=== PATIENT | male | born 1950 | race African-American/Black ===

== ENCOUNTER 2016-04-24 13:35 | Inpatient (IN) | payer MEDICARE, BC ==
[~2016-04-24] VITALS: Ht 182.9 cm; Wt 95.3 kg
--- NOTE | 2016-04-24 14:13 | PHYS DOC ---
Past Medical History Past Medical History: High Cholesterol, Hypertension Past Surgical History: Other Additional Past Surgical Histo: right rotator cuff, prostate Alcohol Use: Occasionally Additional Information: reports occasional beer Drug Use: None Adult General Chief Complaint Chief Complaint: COUGH HPI HPI Patient is a 66 year old male complaining of a cough getting worse for a few days, shortness of air especially with exertion getting worse. He has had some chills and maybe a low-grade fever. He has no chronic lung disease. He used to smoke a long time ago. No COPD or asthma. He does not use medications for lungs at home. He's never been admitted to the hospital for any kind of lung problem. He has no heart problems. He did have a flu shot last fall. PCP in [place] Review of Systems Review of Systems Constitutional: Positive for low-grade fever and chills. Eyes: Denies change in visual acuity, redness, or eye pain [] HENT: Denies nasal congestion or sore throat [] Respiratory: As in history of present illness Cardiovascular: Denies chest pain GI: Denies abdominal pain, nausea, vomiting, bloody stools or diarrhea [] : Denies dysuria or hematuria [] Musculoskeletal: Denies back pain or joint pain [] Integument: Denies rash or skin lesions [] Neurologic: Denies headache, focal weakness or sensory changes [] Current Medications Current Medications Current Medications Medications (Trade) Dose Ordered Sig/Yves Start Time Stop Time Status Last Admin Dose Admin Albuterol/ Ipratropium (Duoneb) 3 ml 1X ONCE 04/24/16 14:15 04/24/16 14:16 DC 04/24/16 14:13 3 ML Levofloxacin/ Dextrose (LEVAQUIN 750mg PREMIX) 150 ml @ 100 mls/hr 1X ONCE 04/24/16 15:00 04/24/16 16:29 Oseltamivir Phosphate 75 mg 75 mg BID 04/24/16 15:00 04/29/16 14:59 Allergies Allergies Allergies Coded Allergies Type Severity Reaction Last Updated Verified lisinopril Allergy Severe angioedema 04/24/16 Yes Physical Exam Physical Exam Constitutional: Well developed, well nourished, alert, mentating normally, tachycardic in the 120s, pulse ox on room air 92-95%, coughing frequently HENT: Normocephalic, atraumatic, bilateral external ears normal, nose normal. [] Eyes: conjunctiva normal, no discharge. [] Neck: Normal range of motion, no stridor. [] Cardiovascular:Heart rate regular tachycardia, no murmur [] Lungs & Thorax: Breath sounds mildly diminished throughout, some expiratory wheezing scattered, not significantly prolonged expiratory phase Abdomen: Bowel sounds normal, soft, no tenderness, no masses, no pulsatile masses. [] Skin: Warm, dry, no erythema, no rash. [] Extremities: No tenderness, no cyanosis, no clubbing, ROM intact, no edema. [] Neurologic: Alert and oriented X 3, normal motor function, normal sensory function, no focal deficits noted. [] Current Patient Data Vital Signs Vital Signs Date Time Temp Pulse Resp B/P Pulse Ox O2 Delivery O2 Flow Rate FiO2 04/24/16 14:15 100 Room Air 04/24/16 13:45 99.4 118 28 155/102 99.4 Lab Values Laboratory Tests Test 04/24/16 14:02 04/24/16 14:05 White Blood Count 7.4x10^3/uL (4.0-11.0) Red Blood Count 4.96x10^6/uL (4.30-5.70) Hemoglobin 15.0g/dL (13.0-17.5) Hematocrit 45.5% (39.0-53.0) Mean Corpuscular Volume 92fL (79-100) Mean Corpuscular Hemoglobin 30pg (25-35) Mean Corpuscular Hemoglobin Concent 33g/dL (31-37) Red Cell Distribution Width 13.7% (11.5-14.5) Platelet Count 176x10^3/uL (140-400) Neutrophils (%) (Auto) 80% (31-73) H Lymphocytes (%) (Auto) 5% (24-48) L Monocytes (%) (Auto) 12% (0-9) H Eosinophils (%) (Auto) 3% (0-3) Basophils (%) (Auto) 1% (0-3) Neutrophils # (Auto) 5.9x10^3uL (1.8-7.7) Lymphocytes # (Auto) 0.4x10^3/uL (1.0-4.8) L Monocytes # (Auto) 0.9x10^3/uL (0.0-1.1) Eosinophils # (Auto) 0.2x10^3/uL (0.0-0.7) Basophils # (Auto) 0.0x10^3/uL (0.0-0.2) Segmented Neutrophils % 67% (35-66) H Band Neutrophils % 11% (0-9) H Lymphocytes % 9% (24-48) L Monocytes % 10% (0-10) Eosinophils % 3% (0-5) Toxic Granulation Slight Toxic Vacuolation Slight Platelet Estimate Adequate (ADEQUATE) Sodium Level 140mmol/L (136-145) Potassium Level 4.2mmol/L (3.5-5.1) Chloride Level 103mmol/L (98-107) Carbon Dioxide Level 27mmol/L (21-32) Anion Gap 10 (6-14) Blood Urea Nitrogen 18mg/dL (8-26) Creatinine 1.5mg/dL (0.7-1.3) H Estimated GFR (Cockcroft-Gault) 56.8 BUN/Creatinine Ratio 12 (6-20) Glucose Level 113mg/dL (70-99) H Calcium Level 8.9mg/dL (8.5-10.1) Total Bilirubin Pending Aspartate Amino Transferase (AST) Pending Alanine Aminotransferase (ALT) Pending Alkaline Phosphatase Pending Total Protein Pending Albumin Pending Albumin/Globulin Ratio Pending Influenza Type A Antigen Negative (NEGATIVE) Influenza Type B Antigen Positive (NEGATIVE) Laboratory Tests 04/24/16 14:02 Laboratory Tests 04/24/16 14:02 EKG EKG 12-lead EKG read by me. Sinus tachycardia. Heart rate 117. There are no acute ST or T wave changes indicative of ischemia or infarction. No STEMI. 1353 [] Radiology/Procedures Radiology/Procedures One view portable chest x-ray read by me. No, consolidated infiltrate. Heart size is normal. Streaky areas bilaterally. [] Course & Med Decision Making Course & Med Decision Making Pertinent Labs and Imaging studies reviewed. (See chart for details) 66-year-old male who does not have chronic lung disease or heart disease, comes in with several days of worsening cough, worsening dyspnea. His pulse ox on room air is in the low to mid 90s but he is tachycardic with a temp of only 99.4 , which I believe is indicative of some underlying hypoxemia. No clear-cut pneumonia on the chest x-ray although there are some streaky areas. We will give him a breathing treatment. With no history of COPD, I suspect this must be infectious in etiology. Influenza swab and blood cultures were sent. Influenza positive. With patient's tachycardia and dyspnea, we will admit him to the hospital for breathing treatments, IV antibiotics, and I started Tamiflu in the emergency department. I spoke with Dr. Cespedes who will admit the patient. I wrote bridge orders. [] Dragon Disclaimer Dragon Disclaimer This electronic medical record was generated, in whole or in part, using a voice recognition dictation system. Departure Departure Impression: Primary Impression: Influenza B Additional Impression: Pneumonia Disposition: ADMITTED INPATIENT Admitting Physician: Soraya Cespedes Condition: STABLE Referrals: TANO WEBER (PCP) Problem Qualifiers GRETEL STEEL MD Apr 24, 2016 14:13
[2016-04-24] MEDS ORDERED: IPRATRPIUM/ALBUTEROL 0.5/2.5MG 3 ML NEBU. NEB ONE (14:15)
[2016-04-24 14:16] LABS: BASO % 1 % (0-3); EOS % 3 % (0-3); HEMATOCRIT 45.5 % (39.0-53.0); LYMPH # 0.4 x10^3/uL (1.0-4.8); LYMPH % 5 % (24-48); MEAN CORPUSCULAR HEMOGLOBIN 30 pg (25-35); MEAN CORPUSCULAR HGB CONC 33 g/dL (31-37); MEAN CORPUSCULAR VOLUME 92 fL (79-100); MONO % 12 % (0-9); NEUT % 80 % (31-73); PLATELET COUNT 176 x10^3/uL (140-400); RED BLOOD COUNT 4.96 x10^6/uL (4.30-5.70); RED CELL DISTRIBUTION WIDTH 13.7 % (11.5-14.5); WHITE BLOOD COUNT 7.4 x10^3/uL (4.0-11.0)
--- NOTE | 2016-04-24 14:31 | RAD ---
INDICATION: cough COMPARISON: 03/28/2009 FINDINGS: Single view of chest obtained. Mild elevation right hemidiaphragm with linear opacity right lung base. Cardiac silhouette unremarkable. No grossly displaced acute appearing fracture IMPRESSION: Mild elevation right hemidiaphragm with linear opacity right lung base. Most likely cause is atelectasis given the morphology and location.
[2016-04-24 14:37] LABS: OBC FLU VALID
[2016-04-24 14:39] LABS: % EOS 3 % (0-5); CALCIUM 8.9 mg/dL (8.5-10.1); CREATININE 1.5 mg/dL (0.7-1.3); GFR 56.8; POTASSIUM 4.2 mmol/L (3.5-5.1)
[2016-04-24 14:41] LABS: PLT ESTIMATE ADEQUATE (ADEQUATE); TOXIC GRANULATION SLIGHT; TOXIC VACUOLATION SLIGHT
[2016-04-24 14:45] LABS: ALBUMIN 3.6 g/dL (3.4-5.0); ALBUMIN/GLOBULIN RATIO 0.8 (1.0-1.7); TOTAL BILIRUBIN 0.5 mg/dL (0.2-1.0); TOTAL PROTEIN 7.9 g/dL (6.4-8.2)
[2016-04-24 14:53] LABS: CKMB MASS 1.9 ng/mL (0.0-3.6)
[2016-04-24 14:54] LABS: CKMB INDEX 0.1 % (0-4)
[2016-04-24] MEDS ORDERED: OSELTAMIVIR 75 MG CAPSULE PO SCH (15:00)
[2016-04-24] MEDS ORDERED: MORPHINE SULFATE 4 MG/ML DISP.SYRIN. IV ONE (15:00)
[2016-04-24] MEDS: IV NORMAL SALINE 1000ML BAG 1,000 ML IV SCH ×3 (15:10→17:02)
--- NOTE | 2016-04-24 15:20 | EKG ---
[facility] [address] [place] [address] Test Date: 2016-04-24 Test Time: 13:53:57 Pat Name: SUSANA ELI Department: Room: Gender: M Shear Tender: : 1950 Requested By: GRETEL STEEL Order Number: [id number] Reading MD: Measurements Intervals [place] Rate: 117 P: 31 MI: 160 QRS: -28 QRSD: 82 T: 28 QT: 306 QTc: 431 Interpretive Statements SINUS TACHYCARDIA LEFT ATRIAL ABNORMALITY QRS(T) CONTOUR ABNORMALITY CONSIDER ANTEROSEPTAL INFARCT CONSIDER INFERIOR INFARCT ABNORMAL ECG RI6.01 No previous ECG available for comparison
[2016-04-24] MEDS ORDERED: IPRATRPIUM/ALBUTEROL 0.5/2.5MG 3 ML NEBU. NEB SCH (16:00)
--- NOTE | 2016-04-24 16:10 | ACF ---
Admission Forms Criteria PNEUMONIA, COMMUNITY ACQUIRED Clinical Indications for Admission to Inpatient Care ( Place 'X' for any and all applicable criteria): Admission is indicated for ANY ONE of the following (1)(2)(3): [ ]I. Hypoxemia indicated by ANY ONE of the following: [ ]a) Oxygen saturation less than 90% while breathing room air [ ]b) PO2 less than 60 mm Hg (8.0 kPa) while breathing room air [ ]c) Chronic lung disease with significant deterioration from baseline oxygenation [X]II. Appropriate diagnostic testing and treatment unavailable in outpatient or recovery facility (eg,testing or infection control measures unavailable(10) [ ]III. Moderate-risk or high-risk category patients (Pneumonia Severity Index (PSI) class IV or V, or CURB-65 score of 3 or greater). [ ]IV. Outpatient treatment failure as indicated by ANY ONE of the following(9) : [ ]a) Failure to respond to antibiotic (eg, resistant organism) [ ]b) Clinically significant adverse effects from medication (eg, vomiting) [ ]c) Complications of pneumonia (eg, empyema, bacteremia) [ ]d) Significant worsening of comorbid cond necessitating inpatient care (eg, chronic heart failure) [ ]V. Intermediate-risk category patients (eg, PSI class III or CURB-65 score 2) who do not improve with initial therapy and observation. [ ]. Immunocompromised patients (eg, AIDS, chronic steroid use) at moderate or high risk based on clinical evaluation. [ ]VII. Complicated pleural effusions (eg, exudative, loculated) [ ]VIII.Hemodynamic instability [ ] IX. Altered mental status that is severe or persistent. [ ]X. Dehydration that is severe or persistent. [ ]XI. Bacteremia [ ]XII. Respiratory finding (eg. tachypnea) that do not respond to outpatient or observation care treatment Extended stay beyond goal length of stay may be needed for (20) [ ]a) Unclear diagnosis [ ]b) Pleural disease [ ]c) Severe pneumonia or treatment failure (25 [ ]d) Respiratory failure (anticipate invasive or noninvasive ventilatory support) [ ]e) Abnormal serum electrolytes (serum Na concentration less than 135 mEq/L (mmol/L) (32)(33) [ ]f) Clinically significant comorbid illness (eg, heart failure, atrial fibrillation with rapid heart rate, alcohol withdrawal, renal insufficiency)(34)(35) [ ]g) Comorbid acute exacerbation of COPD(36) [ ]h) Concomitant diagnosis of malignancy that may be associated with malnutrition, immunologic impairment, or bronchial obstruction. [ ]i) Concomitant altered mental status [ ]j) Culture-identified Gram-negative or antibiotic-resistant organism (eg, Pseudomonas, methicillin-resistant Staphylococcus aureus)(30) [ ]k) Healthcare-associated pneumonia The original [employer] content created by [employer] has been revised. The portions of the content which have been revised are identified through the use of italic text or in bold, and [facility] has neither reviewed nor approved the modified material. All other unmodified content is copyright [employer] [facility]. Please see references footnoted in the original [facility] edition 2016 Admission Criteria Met?: Yes ALFREDO ALEXANDRA. Apr 24, 2016 16:10
[2016-04-24] MEDS ORDERED: ALBUTEROL SULFATE 2.5 MG/3 ML NEBU. NEB PRN (16:30)
[2016-04-24] MEDS ORDERED: ONDANSETRON PF 4 MG/2 ML VIAL. IV PRN (16:30)
--- NOTE | 2016-04-24 16:35 | PDOC1 ---
History and Physical Date of Admission Date of Admission 04/24/16 Identification/Chief Complaint Chief Complaint SOB Problems: Source Source: Chart review, Patient History of Present Illness History of Present Illness HPI Patient is a 66 year old male complaining of a cough FOR A few days. He quit smoking for a long time. has sob, mild sputum. fever 102 at home. + flu in ER He did have a flu shot last fall. PCP in [place] Past Medical History Cardiovascular: HTN Past Surgical History Past Surgical History ght rotator cuff, prostate Family History Family History: No Significant Social History Smoke: No ALCOHOL: social Drugs: None Current Problem List Problem List Problems Medical Problems: (1) Influenza B Status: Acute (2) Pneumonia Status: Acute Current Medications Current Medications Current Medications Medications (Trade) Dose Ordered Sig/Yves Start Time Stop Time Status Last Admin Dose Admin Albuterol/ Ipratropium (Duoneb) 3 ml RTQID 04/24/16 16:00 04/25/16 15:59 Levofloxacin/ Dextrose (LEVAQUIN 750mg PREMIX) 150 ml @ 100 mls/hr 1X ONCE 04/24/16 15:00 04/24/16 16:29 04/24/16 15:12 100 MLS/HR Morphine Sulfate 2 mg 2 mg PRN Q2HR PRN 04/24/16 15:00 04/25/16 14:59 Oseltamivir Phosphate 75 mg 75 mg BID 04/24/16 15:00 04/29/16 14:59 04/24/16 15:15 75 MG Sodium Chloride (Iv Sodium Chloride 0.9% 1000ml Bag) 1,000 ml @ 100 mls/hr Q10H 04/24/16 15:00 04/25/16 14:59 04/24/16 15:10 100 MLS/HR Allergies Allergies Allergies Coded Allergies Type Severity Reaction Last Updated Verified lisinopril Allergy Severe angioedema 04/24/16 Yes ROS Review of System CONSTITUTIONAL: No fever or chills EYES: No recent changes SKIN: No rash or itching CARDIOVASCULAR: No chest pain, syncope, palpitations, or edema RESPIRATORY: No SOB or cough GASTROINTESTINAL: No nausea, vomiting or abdominal pain NEUROLOGICAL: No headaches or weakness ENDOCRINE: No cold or heat intolerance GENITOURINARY: No urgency or frequency of urination MUSCULOSKELETAL: No back pain or joint pain LYMPHATICS: No enlarged lymph nodes PSYCHIATRIC: No anxiety or depression Physical Exam Physical Exam GEN.: No apparent distress. Alert and oriented. HEENT: Head is normocephalic, atraumatic NECK: Supple. LUNGS: bl coarse bs HEART: RRR, S1, S2 present. Peripheral pulses intact ABDOMEN: Soft, nontender. Positive bowel sounds. EXTREMITIES: Without any cyanosis. NEUROLOGIC: Normal speech, normal tone PSYCHIATRIC: Normal affect, normal mood. SKIN: No ulcerations Vitals Vitals Vital Signs Date Time Temp Pulse Resp B/P Pulse Ox O2 Delivery O2 Flow Rate FiO2 04/24/16 15:46 122 24 122/81 96 Nasal Cannula 2 04/24/16 13:45 99.4 99.4 Labs Labs Laboratory Tests Test 04/24/16 14:02 04/24/16 14:05 White Blood Count 7.4x10^3/uL (4.0-11.0) Red Blood Count 4.96x10^6/uL (4.30-5.70) Hemoglobin 15.0g/dL (13.0-17.5) Hematocrit 45.5% (39.0-53.0) Mean Corpuscular Volume 92fL (79-100) Mean Corpuscular Hemoglobin 30pg (25-35) Mean Corpuscular Hemoglobin Concent 33g/dL (31-37) Red Cell Distribution Width 13.7% (11.5-14.5) Platelet Count 176x10^3/uL (140-400) Neutrophils (%) (Auto) 80% (31-73) Lymphocytes (%) (Auto) 5% (24-48) Monocytes (%) (Auto) 12% (0-9) Eosinophils (%) (Auto) 3% (0-3) Basophils (%) (Auto) 1% (0-3) Neutrophils # (Auto) 5.9x10^3uL (1.8-7.7) Lymphocytes # (Auto) 0.4x10^3/uL (1.0-4.8) Monocytes # (Auto) 0.9x10^3/uL (0.0-1.1) Eosinophils # (Auto) 0.2x10^3/uL (0.0-0.7) Basophils # (Auto) 0.0x10^3/uL (0.0-0.2) Segmented Neutrophils % 67% (35-66) Band Neutrophils % 11% (0-9) Lymphocytes % 9% (24-48) Monocytes % 10% (0-10) Eosinophils % 3% (0-5) Toxic Granulation Slight Toxic Vacuolation Slight Platelet Estimate Adequate (ADEQUATE) Sodium Level 140mmol/L (136-145) Potassium Level 4.2mmol/L (3.5-5.1) Chloride Level 103mmol/L (98-107) Carbon Dioxide Level 27mmol/L (21-32) Anion Gap 10 (6-14) Blood Urea Nitrogen 18mg/dL (8-26) Creatinine 1.5mg/dL (0.7-1.3) Estimated GFR (Cockcroft-Gault) 56.8 BUN/Creatinine Ratio 12 (6-20) Glucose Level 113mg/dL (70-99) Lactic Acid Level 1.1mmol/L (0.4-2.0) Calcium Level 8.9mg/dL (8.5-10.1) Total Bilirubin 0.5mg/dL (0.2-1.0) Aspartate Amino Transf (AST/SGOT) 75U/L (15-37) Alanine Aminotransferase (ALT/SGPT) 37U/L (16-63) Alkaline Phosphatase 29U/L (46-116) Creatine Kinase 3108U/L (39-308) Creatine Kinase MB (Mass) 1.9ng/mL (0.0-3.6) Creatine Kinase MB Relative Index 0.1% (0-4) Troponin I Quantitative < 0.017ng/mL (0.000-0.055) IL-Omo-S-Type Natriuretic Peptide 78pg/mL (0-124) Total Protein 7.9g/dL (6.4-8.2) Albumin 3.6g/dL (3.4-5.0) Albumin/Globulin Ratio 0.8 (1.0-1.7) Influenza Type A Antigen Negative (NEGATIVE) Influenza Type B Antigen Positive (NEGATIVE) Laboratory Tests Test 04/24/16 14:02 04/24/16 14:05 White Blood Count 7.4x10^3/uL (4.0-11.0) Red Blood Count 4.96x10^6/uL (4.30-5.70) Hemoglobin 15.0g/dL (13.0-17.5) Hematocrit 45.5% (39.0-53.0) Mean Corpuscular Volume 92fL (79-100) Mean Corpuscular Hemoglobin 30pg (25-35) Mean Corpuscular Hemoglobin Concent 33g/dL (31-37) Red Cell Distribution Width 13.7% (11.5-14.5) Platelet Count 176x10^3/uL (140-400) Neutrophils (%) (Auto) 80% (31-73) Lymphocytes (%) (Auto) 5% (24-48) Monocytes (%) (Auto) 12% (0-9) Eosinophils (%) (Auto) 3% (0-3) Basophils (%) (Auto) 1% (0-3) Neutrophils # (Auto) 5.9x10^3uL (1.8-7.7) Lymphocytes # (Auto) 0.4x10^3/uL (1.0-4.8) Monocytes # (Auto) 0.9x10^3/uL (0.0-1.1) Eosinophils # (Auto) 0.2x10^3/uL (0.0-0.7) Basophils # (Auto) 0.0x10^3/uL (0.0-0.2) Segmented Neutrophils % 67% (35-66) Band Neutrophils % 11% (0-9) Lymphocytes % 9% (24-48) Monocytes % 10% (0-10) Eosinophils % 3% (0-5) Toxic Granulation Slight Toxic Vacuolation Slight Platelet Estimate Adequate (ADEQUATE) Sodium Level 140mmol/L (136-145) Potassium Level 4.2mmol/L (3.5-5.1) Chloride Level 103mmol/L (98-107) Carbon Dioxide Level 27mmol/L (21-32) Anion Gap 10 (6-14) Blood Urea Nitrogen 18mg/dL (8-26) Creatinine 1.5mg/dL (0.7-1.3) Estimated GFR (Cockcroft-Gault) 56.8 BUN/Creatinine Ratio 12 (6-20) Glucose Level 113mg/dL (70-99) Lactic Acid Level 1.1mmol/L (0.4-2.0) Calcium Level 8.9mg/dL (8.5-10.1) Total Bilirubin 0.5mg/dL (0.2-1.0) Aspartate Amino Transf (AST/SGOT) 75U/L (15-37) Alanine Aminotransferase (ALT/SGPT) 37U/L (16-63) Alkaline Phosphatase 29U/L (46-116) Creatine Kinase 3108U/L (39-308) Creatine Kinase MB (Mass) 1.9ng/mL (0.0-3.6) Creatine Kinase MB Relative Index 0.1% (0-4) Troponin I Quantitative < 0.017ng/mL (0.000-0.055) CO-Fxc-K-Type Natriuretic Peptide 78pg/mL (0-124) Total Protein 7.9g/dL (6.4-8.2) Albumin 3.6g/dL (3.4-5.0) Albumin/Globulin Ratio 0.8 (1.0-1.7) Influenza Type A Antigen Negative (NEGATIVE) Influenza Type B Antigen Positive (NEGATIVE) VTE Prophylaxis Ordered VTE Prophylaxis Devices: Yes VTE Pharmacological Prophylaxi: Yes Assessment/Plan Assessment/Plan 1. dyspea with flu B 2. htn 3. hld 4. ckd4 5. acute resp failure 6. SIRS with flu plan: 1 tamiflu 2. duoneb 3. need home meds dvt ppx cough meds ivf for 1L MIRANDA MOREJON MD Apr 24, 2016 16:35
[2016-04-24 16:44] VITALS: BP 152/94
[2016-04-24] MEDS ORDERED: hydrALAZINE 20 MG/ML VIAL. IVP PRN (16:45)
[2016-04-24] MEDS: MORPHINE SULFATE 2 MG/ML DISP.SYRIN. IV PRN ×2 (17:03→23:59)
[2016-04-24] MEDS ORDERED: ATOR20TA58 PO (17:25)
[2016-04-24] MEDS ORDERED: MELO-156 PO (17:25)
[2016-04-24] MEDS ORDERED: FENO145T2 PO (17:25)
[2016-04-24] MEDS ORDERED: AMLO5TAB2 PO (17:25)
[2016-04-24 17:55] VITALS: BP 152/94
[2016-04-24] MEDS: ACETAMINOPHEN 325 MG TABLET. PO PRN (19:48)
[2016-04-24] MEDS: GUAIFENESIN 200 MG/10 ML LIQUID. PO PRN ×2 (19:48→23:59)
[2016-04-24 19:49] VITALS: BP 137/88
[2016-04-24] MEDS: IPRATRPIUM/ALBUTEROL 0.5/2.5MG 3 ML NEBU. NEB SCH (19:54)
[2016-04-24] MEDS: ATORVASTATIN CALCIUM 20 MG TABLET PO SCH (20:45)
[2016-04-24] MEDS: OSELTAMIVIR 30 MG CAPSULE PO SCH (20:46)
[2016-04-24] MEDS: HEPARIN PF for SUB-Q USE 5,000 UNIT/0.5 ML VIAL. SQ SCH (22:44)
[2016-04-24 23:06] VITALS: BP 128/68
[2016-04-25] MEDS: IV NORMAL SALINE 1000ML BAG 1,000 ML IV SCH (00:01)
[2016-04-25 06:05] LABS: BASO % 1 % (0-3); EOS % 2 % (0-3); HEMATOCRIT 42.1 % (39.0-53.0); HEMOGLOBIN 13.9 g/dL (13.0-17.5); LYMPH # 0.6 x10^3/uL (1.0-4.8); LYMPH % 12 % (24-48); MEAN CORPUSCULAR HEMOGLOBIN 30 pg (25-35); MEAN CORPUSCULAR HGB CONC 33 g/dL (31-37); MEAN CORPUSCULAR VOLUME 92 fL (79-100); MONO % 11 % (0-9); NEUT % 75 % (31-73); PLATELET COUNT 151 x10^3/uL (140-400); RED BLOOD COUNT 4.58 x10^6/uL (4.30-5.70); RED CELL DISTRIBUTION WIDTH 13.7 % (11.5-14.5); WHITE BLOOD COUNT 4.8 x10^3/uL (4.0-11.0)
[2016-04-25 06:26] LABS: CREATININE 1.2 mg/dL (0.7-1.3); GFR 73.5; POTASSIUM 3.7 mmol/L (3.5-5.1)
[2016-04-25] MEDS: ACETAMINOPHEN 325 MG TABLET. PO PRN ×3 (06:30→20:34)
[2016-04-25] MEDS: GUAIFENESIN 200 MG/10 ML LIQUID. PO PRN ×3 (06:30→20:34)
[2016-04-25] MEDS: HEPARIN PF for SUB-Q USE 5,000 UNIT/0.5 ML VIAL. SQ SCH ×3 (06:38→20:43)
[2016-04-25 07:00] VITALS: BP 130/88
[2016-04-25] MEDS: IPRATRPIUM/ALBUTEROL 0.5/2.5MG 3 ML NEBU. NEB SCH ×4 (07:55→19:48)
[2016-04-25] MEDS: AMLODIPINE BESYLATE 5 MG TABLET PO SCH (08:59)
[2016-04-25] MEDS: FENOFIBRATE,MICRONIZED 134 MG CAPSULE PO SCH (08:59)
[2016-04-25] MEDS: OSELTAMIVIR 30 MG CAPSULE PO SCH (09:00)
[2016-04-25] MEDS: MORPHINE SULFATE 2 MG/ML DISP.SYRIN. IV PRN (09:01)
[2016-04-25 11:00] VITALS: BP 120/84
[2016-04-25] MEDS ORDERED: MORPHINE SULFATE 2 MG/ML DISP.SYRIN. IV PRN (15:15)
--- NOTE | 2016-04-25 16:05 | PDOC ---
PROGRESS NOTES Chief Complaint Chief Complaint Dyspnea Influenza B ASSESSMENT AND PLAN: 1. Influenza B: on tamiflu since 04/24 2. Acute respir failure: bronchitis. improving. nebs, suppl O2, expectorants. codeine for cough suppression PRN 3. SIRS: improving 4. HTN: well controlled on Norvasc 5. HLD: on statin, fenofibrate 6. 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 monitor 7. Prophylaxis: heparin 8. Dispo: prob home in AM Vitals Vitals Vital Signs Date Time Temp Pulse Resp B/P Pulse Ox O2 Delivery O2 Flow Rate FiO2 04/25/16 15:16 Nasal Cannula 2.0 04/25/16 11:00 98.7 89 20 120/84 97 98.7 Physical Exam General: Alert, Oriented X3, Cooperative, No acute distress Heart: Regular rate Lungs: Clear Abdomen: Normal bowel sounds, Soft, No tenderness Extremities: No clubbing, No edema Skin: No rashes Labs LABS Laboratory Tests Test 04/25/16 05:14 White Blood Count 4.8x10^3/uL (4.0-11.0) Red Blood Count 4.58x10^6/uL (4.30-5.70) Hemoglobin 13.9g/dL (13.0-17.5) Hematocrit 42.1% (39.0-53.0) Mean Corpuscular Volume 92fL (79-100) Mean Corpuscular Hemoglobin 30pg (25-35) Mean Corpuscular Hemoglobin Concent 33g/dL (31-37) Red Cell Distribution Width 13.7% (11.5-14.5) Platelet Count 151x10^3/uL (140-400) Neutrophils (%) (Auto) 75% (31-73) Lymphocytes (%) (Auto) 12% (24-48) Monocytes (%) (Auto) 11% (0-9) Eosinophils (%) (Auto) 2% (0-3) Basophils (%) (Auto) 1% (0-3) Neutrophils # (Auto) 3.6x10^3uL (1.8-7.7) Lymphocytes # (Auto) 0.6x10^3/uL (1.0-4.8) Monocytes # (Auto) 0.5x10^3/uL (0.0-1.1) Eosinophils # (Auto) 0.1x10^3/uL (0.0-0.7) Basophils # (Auto) 0.0x10^3/uL (0.0-0.2) Sodium Level 140mmol/L (136-145) Potassium Level 3.7mmol/L (3.5-5.1) Chloride Level 103mmol/L (98-107) Carbon Dioxide Level 28mmol/L (21-32) Anion Gap 9 (6-14) Blood Urea Nitrogen 17mg/dL (8-26) Creatinine 1.2mg/dL (0.7-1.3) Estimated GFR (Cockcroft-Gault) 73.5 Glucose Level 110mg/dL (70-99) Calcium Level 8.0mg/dL (8.5-10.1) Review of Systems Review of Systems still coughing, typically with min expectoration. no CP. Comment Labs Laboratory Tests Test 04/24/16 14:02 04/24/16 14:05 04/25/16 05:14 White Blood Count 7.4x10^3/uL (4.0-11.0) 4.8x10^3/uL (4.0-11.0) Red Blood Count 4.96x10^6/uL (4.30-5.70) 4.58x10^6/uL (4.30-5.70) Hemoglobin 15.0g/dL (13.0-17.5) 13.9g/dL (13.0-17.5) Hematocrit 45.5% (39.0-53.0) 42.1% (39.0-53.0) Mean Corpuscular Volume 92fL (79-100) 92fL (79-100) Mean Corpuscular Hemoglobin 30pg (25-35) 30pg (25-35) Mean Corpuscular Hemoglobin Concent 33g/dL (31-37) 33g/dL (31-37) Red Cell Distribution Width 13.7% (11.5-14.5) 13.7% (11.5-14.5) Platelet Count 176x10^3/uL (140-400) 151x10^3/uL (140-400) Neutrophils (%) (Auto) 80% (31-73) 75% (31-73) Lymphocytes (%) (Auto) 5% (24-48) 12% (24-48) Monocytes (%) (Auto) 12% (0-9) 11% (0-9) Eosinophils (%) (Auto) 3% (0-3) 2% (0-3) Basophils (%) (Auto) 1% (0-3) 1% (0-3) Neutrophils # (Auto) 5.9x10^3uL (1.8-7.7) 3.6x10^3uL (1.8-7.7) Lymphocytes # (Auto) 0.4x10^3/uL (1.0-4.8) 0.6x10^3/uL (1.0-4.8) Monocytes # (Auto) 0.9x10^3/uL (0.0-1.1) 0.5x10^3/uL (0.0-1.1) Eosinophils # (Auto) 0.2x10^3/uL (0.0-0.7) 0.1x10^3/uL (0.0-0.7) Basophils # (Auto) 0.0x10^3/uL (0.0-0.2) 0.0x10^3/uL (0.0-0.2) Segmented Neutrophils % 67% (35-66) Band Neutrophils % 11% (0-9) Lymphocytes % 9% (24-48) Monocytes % 10% (0-10) Eosinophils % 3% (0-5) Toxic Granulation Slight Toxic Vacuolation Slight Platelet Estimate Adequate (ADEQUATE) Sodium Level 140mmol/L (136-145) 140mmol/L (136-145) Potassium Level 4.2mmol/L (3.5-5.1) 3.7mmol/L (3.5-5.1) Chloride Level 103mmol/L (98-107) 103mmol/L (98-107) Carbon Dioxide Level 27mmol/L (21-32) 28mmol/L (21-32) Anion Gap 10 (6-14) 9 (6-14) Blood Urea Nitrogen 18mg/dL (8-26) 17mg/dL (8-26) Creatinine 1.5mg/dL (0.7-1.3) 1.2mg/dL (0.7-1.3) Estimated GFR (Cockcroft-Gault) 56.8 73.5 BUN/Creatinine Ratio 12 (6-20) Glucose Level 113mg/dL (70-99) 110mg/dL (70-99) Lactic Acid Level 1.1mmol/L (0.4-2.0) Calcium Level 8.9mg/dL (8.5-10.1) 8.0mg/dL (8.5-10.1) Total Bilirubin 0.5mg/dL (0.2-1.0) Aspartate Amino Transf (AST/SGOT) 75U/L (15-37) Alanine Aminotransferase (ALT/SGPT) 37U/L (16-63) Alkaline Phosphatase 29U/L (46-116) Creatine Kinase 3108U/L (39-308) Creatine Kinase MB (Mass) 1.9ng/mL (0.0-3.6) Creatine Kinase MB Relative Index 0.1% (0-4) Troponin I Quantitative < 0.017ng/mL (0.000-0.055) [id number]-[id number]-Type Natriuretic Peptide 78pg/mL (0-124) Total Protein 7.9g/dL (6.4-8.2) Albumin 3.6g/dL (3.4-5.0) Albumin/Globulin Ratio 0.8 (1.0-1.7) Influenza Type A Antigen Negative (NEGATIVE) Influenza Type B Antigen Positive (NEGATIVE) Laboratory Tests Test 04/25/16 05:14 White Blood Count 4.8x10^3/uL (4.0-11.0) Red Blood Count 4.58x10^6/uL (4.30-5.70) Hemoglobin 13.9g/dL (13.0-17.5) Hematocrit 42.1% (39.0-53.0) Mean Corpuscular Volume 92fL (79-100) Mean Corpuscular Hemoglobin 30pg (25-35) Mean Corpuscular Hemoglobin Concent 33g/dL (31-37) Red Cell Distribution Width 13.7% (11.5-14.5) Platelet Count 151x10^3/uL (140-400) Neutrophils (%) (Auto) 75% (31-73) Lymphocytes (%) (Auto) 12% (24-48) Monocytes (%) (Auto) 11% (0-9) Eosinophils (%) (Auto) 2% (0-3) Basophils (%) (Auto) 1% (0-3) Neutrophils # (Auto) 3.6x10^3uL (1.8-7.7) Lymphocytes # (Auto) 0.6x10^3/uL (1.0-4.8) Monocytes # (Auto) 0.5x10^3/uL (0.0-1.1) Eosinophils # (Auto) 0.1x10^3/uL (0.0-0.7) Basophils # (Auto) 0.0x10^3/uL (0.0-0.2) Sodium Level 140mmol/L (136-145) Potassium Level 3.7mmol/L (3.5-5.1) Chloride Level 103mmol/L (98-107) Carbon Dioxide Level 28mmol/L (21-32) Anion Gap 9 (6-14) Blood Urea Nitrogen 17mg/dL (8-26) Creatinine 1.2mg/dL (0.7-1.3) Estimated GFR (Cockcroft-Gault) 73.5 Glucose Level 110mg/dL (70-99) Calcium Level 8.0mg/dL (8.5-10.1) Medications Current Medications Albuterol/ Ipratropium (Duoneb) 3 ml 1X ONCE NEB Last administered on 14:13; Start 04/24/16 at 14:15; Stop 04/24/16 at 14:16; Status DC Oseltamivir Phosphate 75 mg 75 mg BID PO Last administered on 04/24/16 15:15; Start 04/24/16 at 15:00; Stop 04/24/16 at 16:32; Status DC Levofloxacin/ Dextrose (LEVAQUIN 750mg PREMIX) 150 ml @ 100 mls/hr 1X ONCE IV Last administered on 04/24/16 15:12; Start 04/24/16 at 15:00; Stop 04/24/16 at 16:29; Status DC Morphine Sulfate 4 mg 1X ONCE IV Last administered on 04/24/16 15:13; Start 04/24/16 at 15:00; Stop 04/24/16 at 15:01; Status DC Morphine Sulfate 2 mg 2 mg PRN Q2HR PRN IV PAIN Last administered on 04/25/16 09:01; Start 04/24/16 at 15:00; Stop 04/25/16 at 14:59; Status DC Sodium Chloride (Iv Sodium Chloride 0.9% 1000ml Bag) 1,000 ml @ 100 mls/hr Q10H IV Last administered on 04/25/16 00:01; Start 04/24/16 at 15:00; Stop at 14:59; Status DC Albuterol/ Ipratropium (Duoneb) 3 ml RTQID NEB ; Start 04/24/16 at 16:00; Stop 04/24/16 at 16:34; Status DC Oseltamivir Phosphate (Tamiflu) 30 mg BID PO Last administered on 04/25/16 09: 00; Start 04/24/16 at 21:00; Stop 04/25/16 at 15:41; Status DC Albuterol/ Ipratropium (Duoneb) 3 ml RTQID NEB Last administered on 04/25/16 15:16; Start 04/24/16 at 20:00 Albuterol Sulfate (Ventolin Neb Soln) 2.5 mg PRN Q4HRS PRN NEB SHORTNESS OF BREATH Last administered on 04/24/16 17:03; Start 04/24/16 at 16:30 Acetaminophen (Tylenol) 650 mg PRN Q6HRS PRN PO MILD PAIN / TEMP Last administered on 04/25/16 15:04; Start 04/24/16 at 16:30 Ondansetron HCl (Zofran) 4 mg PRN Q6HRS PRN IV NAUSEA/VOMITING; Start 04/24/16 at 16:30 Guaifenesin (Robitussin) 200 mg PRN Q4HRS PRN PO COUGH Last administered on 15:03; Start 04/24/16 at 16:30 Hydralazine HCl (Apresoline) 10 mg PRN Q4HRS PRN IVP ELEVATED BP, SEE COMMENTS ; Start 04/24/16 at 16:45 Heparin Sodium (Porcine) 5,000 unit Q8HRS SQ Last administered on 04/25/16 14: 44; Start 04/24/16 at 22:00 Amlodipine Besylate (Norvasc) 5 mg DAILY PO Last administered on 04/25/16 08: 59; Start 04/25/16 at 09:00 Atorvastatin Calcium (Lipitor) 20 mg HS PO Last administered on 04/24/16 20:45 ; Start 04/24/16 at 21:00 Fenofibrate (Lofibra) 134 mg DAILY PO Last administered on 04/25/16 08:59; Start 04/25/16 at 09:00 Morphine Sulfate 2 mg PRN Q2HR PRN IV PAIN Last administered on 04/25/16 15:14 ; Start 04/25/16 at 15:15 Oseltamivir Phosphate (Tamiflu) 75 mg BID PO ; Start 04/25/16 at 21:00; Stop at 21:01 Active Scripts Active Reported Atorvastatin Calcium 20 Mg Tablet 20 Mg PO HS Amlodipine Besylate 5 Mg Tablet 5 Mg PO DAILY Fenofibrate (Fenofibrate Nanocrystallized) 145 Mg Tablet 1 Tab PO DAILY Meloxicam 7.5 Mg Tablet 1 Tab PO DAILY Vitals/I & O Vital Sign - Last 24 Hours 04/24/16 04/24/16 04/24/16 04/24/16 16:44 17:04 17:55 18:02 Temp 99.1 99.1 99.1 99.1 Pulse 120 120 Resp 32 B/P 152/94 152/94 Pulse Ox 96 100 100 O2 Delivery Nasal Cannula Nasal Cannula Nasal Cannula O2 Flow Rate 2.0 2.0 2.0 2.0 04/24/16 04/24/16 04/24/16 04/24/16 19:49 19:55 20:00 23:06 Temp 100.9 98.0 100.9 98.0 Pulse 118 91 Resp 24 B/P 137/88 128/68 Pulse Ox 93 100 93 O2 Delivery Nasal Cannula Nasal Cannula Nasal Cannula Nasal Cannula O2 Flow Rate 2.0 2.0 2.0 2.0 04/24/16 04/25/16 04/25/16 04/25/16 23:59 03:55 07:00 07:47 Temp 98.0 98.0 Pulse 96 Resp 24 22 24 B/P 130/88 Pulse Ox 97 O2 Delivery Nasal Cannula Room Air Nasal Cannula O2 Flow Rate 3.0 2.0 04/25/16 04/25/16 04/25/16 04/25/16 07:56 08:59 11:00 11:34 Temp 98.7 98.7 Pulse 96 89 Resp 20 B/P 130/88 120/84 Pulse Ox 96 97 O2 Delivery Nasal Cannula Room Air Nasal Cannula O2 Flow Rate 2.0 2.0 04/25/16 15:16 O2 Delivery Nasal Cannula O2 Flow Rate 2.0 Intake and Output 04/24/16 04/24/16 04/25/16 14:59 22:59 06:59 Intake Total 0 ml 240 ml Output Total 1700 ml Balance 0 ml -1460 ml EDWIN LOPEZ MD Apr 25, 2016 16:05
[2016-04-25 19:00] VITALS: BP 140/83
[2016-04-25] MEDS: ATORVASTATIN CALCIUM 20 MG TABLET PO SCH (20:34)
[2016-04-25] MEDS: OSELTAMIVIR 75 MG CAPSULE PO SCH (20:34)
[2016-04-25] MEDS ORDERED: ACETAMINOPHEN/CODEINE 300/30MG TABLET PO PRN (21:30)
[2016-04-25 23:24] VITALS: BP 146/87
[2016-04-26 03:21] VITALS: BP 126/81
[2016-04-26] MEDS: HEPARIN PF for SUB-Q USE 5,000 UNIT/0.5 ML VIAL. SQ SCH (06:41)
[2016-04-26 07:00] VITALS: BP 112/86
[2016-04-26] MEDS: IPRATRPIUM/ALBUTEROL 0.5/2.5MG 3 ML NEBU. NEB SCH ×3 (07:50→15:00)
[2016-04-26] MEDS: OSELTAMIVIR 75 MG CAPSULE PO SCH (10:23)
[2016-04-26] MEDS: FENOFIBRATE,MICRONIZED 134 MG CAPSULE PO SCH (10:23)
[2016-04-26] MEDS: AMLODIPINE BESYLATE 5 MG TABLET PO SCH (10:24)
[2016-04-26] MEDS: ACETAMINOPHEN 325 MG TABLET. PO PRN (10:48)
[2016-04-26 11:02] VITALS: BP 119/87
[2016-04-26] MEDS ORDERED: OSEL75CA PO (11:45)
--- NOTE | 2016-04-26 11:48 | PDOC3 ---
Discharge Summary Visit Information Date of Admission: Apr 24, 2016 Date of Discharge: Apr 26, 2016 Admitting Diagnosis Comment: Flu B SIRS HTN Violet,resolved Final Diagnosis Problems Medical Problems: (1) Influenza B Status: Acute (2) Pneumonia Status: Acute Brief Hospital Course Allergies Allergies Coded Allergies Type Severity Reaction Last Updated Verified lisinopril Allergy Severe angioedema 04/24/16 Yes Vital Signs Vital Signs Date Time Temp Pulse Resp B/P Pulse Ox O2 Delivery O2 Flow Rate FiO2 04/26/16 11:24 Room Air 04/26/16 11:02 98.8 111 20 119/87 94 98.8 04/25/16 20:00 2.0 Lab Results Laboratory Tests Test 04/24/16 14:02 04/24/16 14:05 04/25/16 05:14 White Blood Count 7.4x10^3/uL (4.0-11.0) 4.8x10^3/uL (4.0-11.0) Red Blood Count 4.96x10^6/uL (4.30-5.70) 4.58x10^6/uL (4.30-5.70) Hemoglobin 15.0g/dL (13.0-17.5) 13.9g/dL (13.0-17.5) Hematocrit 45.5% (39.0-53.0) 42.1% (39.0-53.0) Mean Corpuscular Volume 92fL (79-100) 92fL (79-100) Mean Corpuscular Hemoglobin 30pg (25-35) 30pg (25-35) Mean Corpuscular Hemoglobin Concent 33g/dL (31-37) 33g/dL (31-37) Red Cell Distribution Width 13.7% (11.5-14.5) 13.7% (11.5-14.5) Platelet Count 176x10^3/uL (140-400) 151x10^3/uL (140-400) Neutrophils (%) (Auto) 80% (31-73) 75% (31-73) Lymphocytes (%) (Auto) 5% (24-48) 12% (24-48) Monocytes (%) (Auto) 12% (0-9) 11% (0-9) Eosinophils (%) (Auto) 3% (0-3) 2% (0-3) Basophils (%) (Auto) 1% (0-3) 1% (0-3) Neutrophils # (Auto) 5.9x10^3uL (1.8-7.7) 3.6x10^3uL (1.8-7.7) Lymphocytes # (Auto) 0.4x10^3/uL (1.0-4.8) 0.6x10^3/uL (1.0-4.8) Monocytes # (Auto) 0.9x10^3/uL (0.0-1.1) 0.5x10^3/uL (0.0-1.1) Eosinophils # (Auto) 0.2x10^3/uL (0.0-0.7) 0.1x10^3/uL (0.0-0.7) Basophils # (Auto) 0.0x10^3/uL (0.0-0.2) 0.0x10^3/uL (0.0-0.2) Segmented Neutrophils % 67% (35-66) Band Neutrophils % 11% (0-9) Lymphocytes % 9% (24-48) Monocytes % 10% (0-10) Eosinophils % 3% (0-5) Toxic Granulation Slight Toxic Vacuolation Slight Platelet Estimate Adequate (ADEQUATE) Sodium Level 140mmol/L (136-145) 140mmol/L (136-145) Potassium Level 4.2mmol/L (3.5-5.1) 3.7mmol/L (3.5-5.1) Chloride Level 103mmol/L (98-107) 103mmol/L (98-107) Carbon Dioxide Level 27mmol/L (21-32) 28mmol/L (21-32) Anion Gap 10 (6-14) 9 (6-14) Blood Urea Nitrogen 18mg/dL (8-26) 17mg/dL (8-26) Creatinine 1.5mg/dL (0.7-1.3) 1.2mg/dL (0.7-1.3) Estimated GFR (Cockcroft-Gault) 56.8 73.5 BUN/Creatinine Ratio 12 (6-20) Glucose Level 113mg/dL (70-99) 110mg/dL (70-99) Lactic Acid Level 1.1mmol/L (0.4-2.0) Calcium Level 8.9mg/dL (8.5-10.1) 8.0mg/dL (8.5-10.1) Total Bilirubin 0.5mg/dL (0.2-1.0) Aspartate Amino Transf (AST/SGOT) 75U/L (15-37) Alanine Aminotransferase (ALT/SGPT) 37U/L (16-63) Alkaline Phosphatase 29U/L (46-116) Creatine Kinase 3108U/L (39-308) Creatine Kinase MB (Mass) 1.9ng/mL (0.0-3.6) Creatine Kinase MB Relative Index 0.1% (0-4) Troponin I Quantitative < 0.017ng/mL (0.000-0.055) WL-[id number]-M-Type Natriuretic Peptide 78pg/mL (0-124) Total Protein 7.9g/dL (6.4-8.2) Albumin 3.6g/dL (3.4-5.0) Albumin/Globulin Ratio 0.8 (1.0-1.7) Influenza Type A Antigen Negative (NEGATIVE) Influenza Type B Antigen Positive (NEGATIVE) Brief Hospital Course Mr. Matute is a 66 old AA male with flu like sxs, tested positive for FLu B. GOt tamiflu, Had some VIOLET, resolved with IVF. NO PT needs, dcd to home on tamiflux 5 days. 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
== END 2016-04-26 15:08 | disposition home or self-care (01) | DRG 682 ==
LOC: ER 13:35 → 5 SOUTH 14:44
PROVIDERS: ADMIT Internal Medicine; ATTEND Internal Medicine
DX: N17.9 Acute kidney failure, unspecified (principal); J11.00 Influenza due to unidentified influenza virus with unspecified type of pneumonia; J96.00 Acute respiratory failure, unspecified whether with hypoxia or hypercapnia; J18.9 Pneumonia, unspecified organism; R65.10 Systemic inflammatory response syndrome (SIRS) of non-infectious origin without acute organ dysfunction; N18.4 Chronic kidney disease, stage 4 (severe); E78.00 Pure hypercholesterolemia, unspecified; E78.5 Hyperlipidemia, unspecified; I12.9 Hypertensive chronic kidney disease with stage 1 through stage 4 chronic kidney disease, or unspecified chronic kidney disease; J40 Bronchitis, not specified as acute or chronic; Z79.899 Other long term (current) drug therapy; Z87.891 Personal history of nicotine dependence; Z79.01 Long term (current) use of anticoagulants; Z88.8 Allergy status to other drugs, medicaments and biological substances
CPT/HCPCS: 36415; 71010; 80048; 80053; 82553; 83605; 83880; 84484; 85007; 85027; 87804; 93005; 94250; 94640; 96365; 96375; J1956; J2270; J7030; J7620; 99285-25

== ENCOUNTER 2018-10-23 15:52 | Emergency (ER) | payer BC ==
[~2018-10-23] VITALS: Ht 182.9 cm; Wt 95.3 kg
[~2018-10-23 15:52] MED LIST: AMLO5TAB10 PO; ATOR20TA58 PO; CEPH500T PO; FENO145T30 PO; MELO7.5T29 PO; OSEL75CA PO
[2018-10-23 17:09] VITALS: BP 117/74
--- NOTE | 2018-10-23 17:28 | PHYS DOC ---
Past Medical History Past Medical History: Diabetes-Type II, High Cholesterol, Hypertension Additional Past Medical Histor: PROSTATE CA Past Surgical History: Other Additional Past Surgical Histo: right rotator cuff, prostate, RIGHT TORN BICEP Alcohol Use: Occasionally Drug Use: None Adult General Chief Complaint Chief Complaint: SUTURE/STAPLE REMOVAL [facility] HPI Patient is a 68 year old male presents suture removal. He states that the sutures placed in the left 30th. He has had no issues. No other complaints. The sutures are located on the right fifth digit. Review of Systems Review of Systems Constitutional: Denies fever or chills [] Eyes: Denies change in visual acuity, redness, or eye pain [] HENT: Denies nasal congestion or sore throat [] Respiratory: Denies cough or shortness of breath [] Cardiovascular: No additional information not addressed in HPI [] GI: Denies abdominal pain, nausea, vomiting, bloody stools or diarrhea [] : Denies dysuria or hematuria [] Musculoskeletal: Denies back pain or joint pain [] Integument: Sutures R fifth digit. Neurologic: Denies headache, focal weakness or sensory changes [] Endocrine: Denies polyuria or polydipsia [] Complete systems were reviewed and found to be within normal limits, except as documented in this note. Allergies Allergies Allergies Coded Allergies Type Severity Reaction Last Updated Verified lisinopril Allergy Severe angioedema 04/24/16 Yes Physical Exam Physical Exam Constitutional: Well developed, well nourished, no acute distress, non-toxic appearance. [] HENT: Normocephalic, atraumatic, bilateral external ears normal, oropharynx moist, no oral exudates, nose normal. [] Eyes: PERRLA, EOMI, conjunctiva normal, no discharge. [] Neck: Normal range of motion, no tenderness, supple, no stridor. [] Cardiovascular:Heart rate regular rhythm, no murmur [] Lungs & Thorax: Bilateral breath sounds clear to auscultation [] Abdomen: Bowel sounds normal, soft, no tenderness, no masses, no pulsatile masses. [] Skin: Sutures R 5th digit, no erythema. Wound appears to have healed appropriately. Back: No tenderness, no CVA tenderness. [] Extremities: No tenderness, no cyanosis, no clubbing, ROM intact, no edema. [] Neurologic: Alert and oriented X 3, normal motor function, normal sensory function, no focal deficits noted. [] Psychologic: Affect normal, judgement normal, mood normal. [] Current Patient Data Vital Signs Vital Signs Date Time Temp Pulse Resp B/P (MAP) Pulse Ox O2 Delivery O2 Flow Rate FiO2 10/23/18 17:09 98.5 56 18 117/74 (88) 99 Room Air 98.5 EKG EKG [] Radiology/Procedures Radiology/Procedures [] Course & Med Decision Making Course & Med Decision Making Pertinent Labs and Imaging studies reviewed. (See chart for details) Took 5 sutures out of R fifth digit. Dragon Disclaimer Dragon Disclaimer This electronic medical record was generated, in whole or in part, using a voice recognition dictation system. Departure Departure Impression: Primary Impression: Visit for suture removal Disposition: 01 HOME, SELF-CARE Condition: STABLE Referrals: TANO WEBER (PCP) Patient Instructions: Suture Removal Additional Instructions: Thank you for visiting [facility]. We appreciate you trusting us with your care. If any additional problems come up don't hesitate to return to visit us. Please follow up with your primary care provider so they can plan additional care if needed and know about the problem that you had. If symptoms worsen come back to the Emergency Department. Any concerning symptoms that start such as chest pain, shortness of air, weakness or numbness on one side of the body, running high fevers or any other concerning symptoms return to the ER. TONE RAM APRN Oct 23, 2018 17:28
== END 2018-10-23 17:41 | disposition home or self-care (01) ==
LOC: ER 15:52
DX: S61.216D Laceration without foreign body of right little finger without damage to nail, subsequent encounter (principal); E11.9 Type 2 diabetes mellitus without complications; E78.00 Pure hypercholesterolemia, unspecified; I10 Essential (primary) hypertension; Z88.8 Allergy status to other drugs, medicaments and biological substances; X58.XXXD Exposure to other specified factors, subsequent encounter
CPT/HCPCS: 99281